=== PATIENT | male | born 1995 ===

== ENCOUNTER 2022-03-08 11:25 | Emergency (ER) | payer SELFPAY ==
--- NOTE | 2022-03-08 11:59 | Emergency Department Report ---
HPI - HPI HPI: Room 6 The patient is a 26-year-old male present with a chief complaint of altered mental status. Per EMS the [place] The patient was instructed to move complaint of pain in his left leg. EMS was called and transported the patient to the hospital. During transport they noticed the patient had a decreased level of consciousness and appeared to be "on something." EMS states that the patient admitted to using cocaine. In the ED the patient has unintelligible speech requires frequent tactile stimuli to awaken. Patient does moan when left thigh is palpated <RERE PRYOR - Last Filed: 03/08/22 13:16> <KARIS RUBI - Last Filed: 03/08/22 19:22> - General Chief Complaint: Altered Mental Status Time Seen by Provider: 03/08/22 11:44 ED Past Medical Hx - Past Medical History Previous Medical History?: No - Surgical History Past Surgical History?: No - Family History Family history: no significant - Social History Substance Use Type: Cocaine <RERE PRYOR - Last Filed: 03/08/22 13:16> ED Review of Systems ROS: Stated complaint: lethargic Other details as noted in HPI Comment: Unobtainable due to pts medical conditions <RERE PRYOR - Last Filed: 03/08/22 13:16> ROS: Stated complaint: lethargic Other details as noted in HPI <KARIS RUBI - Last Filed: 03/08/22 19:22> Physical Exam - Physical Exam Vital Signs: Vital Signs 03/08/22 11:29 Temperature 98.5 F Pulse Rate 67 Respiratory 16 Rate Blood Pressure 140/94 [Right] O2 Sat by Pulse 100 Oximetry Physical Exam: GENERAL: The patient is well-developed well-nourished male lying on stretcher only arousable by tactile stimuli requiring frequent reawakening. [] HEENT: Normocephalic. Atraumatic. Patient has moist mucous membranes. NECK: Supple. Trachea midline CHEST/LUNGS: Clear to auscultation. There is no respiratory distress noted. HEART/CARDIOVASCULAR: Regular. There is no tachycardia. There is no gallop rub or murmur. ABDOMEN: Abdomen is soft, nontender. Patient has normal bowel sounds. There is no abdominal distention. SKIN: There is no rash. There is no edema. There is no diaphoresis. NEURO: The patient appears intoxicated and requires frequent tactile stimulation to awaken. Patient does not answer questions when awake. The patient is not cooperative with neurologic exam. The patient has no focal neurologic deficits. MUSCULOSKELETAL: The patient moans in pain when his left thigh is palpated. <RERE PRYOR - Last Filed: 03/08/22 13:16> - Physical Exam Vital Signs: Vital Signs 03/08/22 11:29 Temperature 98.5 F Pulse Rate 67 Respiratory 16 Rate Blood Pressure 140/94 [Right] O2 Sat by Pulse 100 Oximetry <KARIS RUBI - Last Filed: 03/08/22 19:22> ED Course Vital Signs 03/08/22 11:29 Temperature 98.5 F Pulse Rate 67 Respiratory 16 Rate Blood Pressure 140/94 [Right] O2 Sat by Pulse 100 Oximetry <RERE PRYOR - Last Filed: 03/08/22 13:16> Vital Signs 03/08/22 11:29 Temperature 98.5 F Pulse Rate 67 Respiratory 16 Rate Blood Pressure 140/94 [Right] O2 Sat by Pulse 100 Oximetry <KARIS RUBI - Last Filed: 03/08/22 19:22> ED Medical Decision Making - Differential Diagnosis Polysubstance abuse, intoxication, left lower extremity contusion, <RERE PRYOR - Last Filed: 03/08/22 13:16> - Medical Decision Making The patient is a 26-year-old male present with a chief complaint of altered mental status. Per EMS the patient was reportedly [place] front [place]. The patient was instructed to move complaint of pain in his left leg. EMS was called and transported the patient to the hospital. During transport they noticed the patient had a decreased level of consciousness and appeared to be "on something." EMS states that the patient admitted to using cocaine. In the ED the patient has unintelligible speech requires frequent tactile stimuli to awaken. Patient does moan when left thigh is palpated Patient now is awake, alert and oriented x3 in no acute distress. Patient denied any suicidal or homicidal ideation. He also denied any auditory or visual hallucination. Patient denied any psychiatric diagnosis before. Patient refused labs. CT brain and femur x-rays negative for acute finding. Patient is able to make a sound decision and he wanted to leave. I advised patient to follow-up with his primary care physician in the next 2 to 3 days and to return to the ER if he develop any new symptoms. <KARIS RUBI - Last Filed: 03/08/22 19:22> Critical care attestation.: If time is entered above; I have spent that time in minutes in the direct care of this critically ill patient, excluding procedure time. <RERE PRYOR - Last Filed: 03/08/22 13:16> Critical care attestation.: If time is entered above; I have spent that time in minutes in the direct care of this critically ill patient, excluding procedure time. <KARIS RUBI - Last Filed: 03/08/22 19:22> ED Disposition <RERE PRYOR - Last Filed: 03/08/22 13:16> Is pt being admited?: No <KARIS RUBI - Last Filed: 03/08/22 19:22> Clinical Impression: Altered mental status Disposition: 01 HOME / SELF CARE / HOMELESS Condition: Stable Instructions: Confusion Referrals: KIMBERLY SARABIA MD [Staff Physician] - 3-5 Days
[2022-03-08] MEDS ORDERED: NALOXONE 2 MG/2 ML INJ IV ONE (13:16)
--- NOTE | 2022-03-08 16:00 | Cat Scan Report ---
CT HEAD WITHOUT CONTRAST INDICATION : Altered mental status. TECHNIQUE: Axial imaging performed from the skull apex through the skull base without the use of con trast. Sagittal and coronal reformatted images. All CT scans at this location are performed using C T dose reduction for ALARA by means of automated exposure control. COMPARISON: None FINDINGS: Parenchyma: No acute intracranial hemorrhage or parenchymal abnormality. Ventricles: Ventricles are normal in size and appear symmetric. Bones: No acute osseous abnormality. Sinuses: Sinuses and mastoid air cells are clear. Soft tissues: Soft tissues including the orbits appear normal. IMPRESSION: No significant abnormality identified. Signer Name: Johnathan Solomon Jr, MD Signed: 03/08/2022 3:55 PM Workstation Name: [id number]
--- NOTE | 2022-03-08 16:22 | XRay Report ---
LEFT FEMUR 2 VIEWS INDICATION: Pain LT LEG PAIN. COMPARISON: None. IMPRESSION: No acute osseous or soft tissue abnormality. Unremarkable exam. Signer Name: Johnathan Solomon Jr, MD Signed: 03/08/2022 4:17 PM Workstation Name: [id number]
[2022-03-08 19:30] VITALS: BP 129/73
== END 2022-03-08 20:27 | disposition home or self-care (01) ==
LOC: ED 11:25
DX: R41.82 Altered mental status, unspecified (principal); F14.90 Cocaine use, unspecified, uncomplicated
CPT/HCPCS: 70450; 99284